=== PATIENT | female | born 1995 | race Caucasian/White ===

== ENCOUNTER 2017-04-29 10:36 | Emergency (ER) | payer MEDICAID, OTHER ==
[2017-04-29] MEDS ORDERED: Sodium Chloride 0.9% 1,000 ML IV ONE (10:53)
--- NOTE | 2017-04-29 11:12 | EDM.PDOC ---
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 Patient reports that she has had a IUD placed for the last year, this was for dysfunctional and heavy bleeding along with she does use Accutane for acne control. Since getting the IUD placed her menses has been regulated and she now gets her regular menses monthly. States she is going through a regular tampon every 2-3 hours. Denies any chest pain, shortness of breath, fever or chills. Denies dizziness, near syncope or lightheadedness. Stopped acutane last month, treatment completed. Previous menses, prior to IUD, were constant and heavy. Review of systems: As per history of present illness and below otherwise all systems reviewed and negative. Past medical history: As per history of present illness and as reviewed below otherwise noncontributory. Surgical history: As per history of present illness and as reviewed below otherwise noncontributory. Social history: No reported history of drug or alcohol abuse. Family history: As per history of present illness and as reviewed below otherwise noncontributory. Physical exam: HEENT: Atraumatic, normocephalic, pupils reactive, negative for conjunctival pallor or scleral icterus, mucous membranes moist, throat clear, neck supple, nontender, trachea midline. Lungs: Clear to auscultation, breath sounds equal bilaterally, chest nontender. Heart: S1S2, regular, negative for clicks, rubs, or JVD. Abdomen: Soft, nondistended, nontender. Negative for masses or hepatosplenomegaly. Negative for costovertebral tenderness. Pelvis: Stable nontender. Genitourinary: This was done with a capsule maker. External genitalia is normal. Able to visualize the cervical os which is closed and IUD strings are visible. There is some blood in the vaginal canal. Patient tolerated well. Rectal: Deferred. Extremities: Atraumatic, negative for cords or calf pain. Neurovascular unremarkable. Neuro: Awake, alert, oriented. Cranial nerves II through XII unremarkable. Cerebellum unremarkable. Motor and sensory unremarkable throughout. Exam nonfocal. Offered patient IV fluids and pain medication, she declined at this time. Pelvic exam was completed with a gibson, the IUD strings are visable. See physical examination. Patient has history of ovarian cysts, therefor a U/S will be completed today. Diagnostics: CBC, CMP, UA, urine Therapeutics: Patient declined IV fluids and pain medication Impression: Dysfunctional uterine bleeding Plan: 1. Both the pelvic exam and ultrasound show that your IUD is in place. All your labs were within normal limits. 2. If you continue to have her menstrual periods, please follow-up with your OB/ IMPROVEMENT MANAGER to discuss further treatment options. 3. Return to the ED as needed as discussed Definitive disposition and diagnosis as appropriate pending reevaluation and review of above. Pelvic Pain Score (Numeric/FACES): 7 - Related Data Allergies Allergy/AdvReac Type Severity Reaction Status Date / Time No Known Allergies Allergy Verified 05/12/14 17:07 Home Meds: Home Meds . [No Known Home Meds] 04/29/17 [History] Past Medical History - Past Health History Medical/Surgical History: Denies Medical/Surgical History HELPER STEEL FABRICATION History: Reports: Other (See Below) Other OB/BYN History: IUD Social & Family History - Tobacco Use Smoking Status *Q: Never Smoker Second Hand Smoke Exposure: No - Caffeine Use Caffeine Use: Reports: Coffee - Alcohol Use Days Per Week of Alcohol Use: 0 - Recreational Drug Use Recreational Drug Use: No ED ROS GENERAL - Review of Systems Review Of Systems: ROS reveals no pertinent complaints other than HPI. ED EXAM, GI/ABD - Physical Exam Exam: See Below (See dictation) Course - Vital Signs Last Recorded V/S: Last Vital Signs Temp 36.3 C 04/29/17 10:57 Pulse 84 04/29/17 11:30 Resp 18 04/29/17 10:57 BP 124/74 04/29/17 11:30 Pulse Ox 98 04/29/17 10:57 - Orders/Labs/Meds Orders: Active Orders 24 hr Category Date Time Status Pelvis Non OB Comp [US] Stat Exams 04/29/17 11:43 Taken Labs: Laboratory Tests 04/29/17 04/29/17 04/29/17 Range/Units 11:19 11:19 11:30 WBC 6.26 (4.0-11.0) K/uL RBC 4.85 (4.30-5.90) M/uL Hgb 14.2 (12.0-16.0) g/dL Hct 41.3 (36.0-46.0) % MCV 85.2 (80.0-98.0) fL MCH 29.3 (27.0-32.0) pg MCHC 34.4 (31.0-37.0) g/dL RDW Std Deviation 40.6 (28.0-62.0) fl RDW Coeff of Mariam 13 (11.0-15.0) % Plt Count 245 (150-400) K/uL MPV 9.50 (7.40-12.00) fL Neut % (Auto) 60.3 (48.0-80.0) % Lymph % (Auto) 28.8 (16.0-40.0) % [place] % (Auto) 8.3 (0.0-15.0) % Eos % (Auto) 2.4 (0.0-7.0) % Baso % (Auto) 0.2 (0.0-1.5) % Neut # (Auto) 3.8 (1.4-5.7) K/uL Lymph # (Auto) 1.8 (0.6-2.4) K/uL [place] # (Auto) 0.5 (0.0-0.8) K/uL Eos # (Auto) 0.2 (0.0-0.7) K/uL Baso # (Auto) 0.0 (0.0-0.1) K/uL Nucleated RBC % 0.0 /100WBC Nucleated RBCs # 0 K/uL Sodium 141 (136-146) mmol/L Potassium 4.4 (3.5-5.1) mmol/L Chloride 108 (98-110) mmol/L Carbon Dioxide 24 (21-31) mmol/L BUN 15 (6.0-23.0) mg/dL Creatinine 0.6 (0.6-1.5) mg/dL Est Cr Clr Drug Dosing 141.18 mL/min Estimated GFR (MDRD) > 60.0 ml/min Glucose 99 (60-110) mg/dL Calcium 9.5 (8.8-10.8) mg/dL Total Bilirubin 0.7 (0.1-1.5) mg/dL AST 20 (5-40) IU/L ALT 19 (8-54) IU/L Alkaline Phosphatase 56 (40-150) Total Protein 6.6 (6.0-8.0) g/dL Albumin 4.1 (3.5-5.0) g/dL Globulin 2.5 (2.0-3.5) g/dL Albumin/Globulin Ratio 1.6 (1.3-2.8) Urine Color Urine Appearance Urine pH (5.0-8.0) Ur Specific [place] (1.001-1.035) Urine Protein (NEGATIVE) mg/dL Urine Glucose (UA) (NEGATIVE) mg/dL Urine Ketones (NEGATIVE) mg/dL Urine Occult Blood (NEGATIVE) Urine Nitrite (NEGATIVE) Urine Bilirubin (NEGATIVE) Urine Urobilinogen (<2.0) EU/dL Ur Leukocyte Esterase (NEGATIVE) Urine RBC (0-2/HPF) Urine WBC (0-5/HPF) Ur Epithelial Cells (NONE-FEW) Urine Bacteria (NEGATIVE) Urine HCG, Qual NEGATIVE (NEGATIVE) 04/29/17 Range/Units 11:30 WBC (4.0-11.0) K/uL RBC (4.30-5.90) M/uL Hgb (12.0-16.0) g/dL Hct (36.0-46.0) % MCV (80.0-98.0) fL MCH (27.0-32.0) pg MCHC (31.0-37.0) g/dL RDW Std Deviation (28.0-62.0) fl RDW Coeff of Mariam (11.0-15.0) % Plt Count (150-400) K/uL MPV (7.40-12.00) fL Neut % (Auto) (48.0-80.0) % Lymph % (Auto) (16.0-40.0) % [place] % (Auto) (0.0-15.0) % Eos % (Auto) (0.0-7.0) % Baso % (Auto) (0.0-1.5) % Neut # (Auto) (1.4-5.7) K/uL Lymph # (Auto) (0.6-2.4) K/uL [place] # (Auto) (0.0-0.8) K/uL Eos # (Auto) (0.0-0.7) K/uL Baso # (Auto) (0.0-0.1) K/uL Nucleated RBC % /100WBC Nucleated RBCs # K/uL Sodium (136-146) mmol/L Potassium (3.5-5.1) mmol/L Chloride (98-110) mmol/L Carbon Dioxide (21-31) mmol/L BUN (6.0-23.0) mg/dL Creatinine (0.6-1.5) mg/dL Est Cr Clr Drug Dosing mL/min Estimated GFR (MDRD) ml/min Glucose (60-110) mg/dL Calcium (8.8-10.8) mg/dL Total Bilirubin (0.1-1.5) mg/dL AST (5-40) IU/L ALT (8-54) IU/L Alkaline Phosphatase (40-150) Total Protein (6.0-8.0) g/dL Albumin (3.5-5.0) g/dL Globulin (2.0-3.5) g/dL Albumin/Globulin Ratio (1.3-2.8) Urine Color YELLOW Urine Appearance CLEAR Urine pH 7.0 (5.0-8.0) Ur Specific [place] 1.010 (1.001-1.035) Urine Protein NEGATIVE (NEGATIVE) mg/dL Urine Glucose (UA) NEGATIVE (NEGATIVE) mg/dL Urine Ketones NEGATIVE (NEGATIVE) mg/dL Urine Occult Blood SMALL H (NEGATIVE) Urine Nitrite NEGATIVE (NEGATIVE) Urine Bilirubin NEGATIVE (NEGATIVE) Urine Urobilinogen 0.2 (<2.0) EU/dL Ur Leukocyte Esterase NEGATIVE (NEGATIVE) Urine RBC 2-4 (0-2/HPF) Urine WBC 0-2 (0-5/HPF) Ur Epithelial Cells FEW (NONE-FEW) Urine Bacteria FEW (NEGATIVE) Urine HCG, Qual (NEGATIVE) Meds: Medications Discontinued Medications Generic Name Dose Route Start Last Admin Trade Name Freq PRN Reason Stop Dose Admin Sodium Chloride 1,000 mls @ 999 mls/hr 04/29/17 10:53 Normal Saline IV 04/29/17 11:53 STAT ONE Departure - Departure Time of Disposition: 13:34 Disposition: Home, Self-Care 01 Clinical Impression: Dysfunctional uterine bleeding - Discharge Information Instructions: Dysfunctional Uterine Bleeding Referrals: PCP,None [Primary Care Provider] - Forms: ED Department Discharge Additional Instructions: My general discharge The following information is given to patients seen in the emergency department who are being discharged to home. This information is to outline your options for follow-up care. We provide all patients seen in our emergency department with a follow-up referral. The need for follow-up, as well as the timing and circumstances, are variable depending upon the specifics of your emergency department visit. If you don't have a primary care physician on staff, we will provide you with a referral. We always advise you to contact your personal physician following an emergency department visit to inform them of the circumstance of the visit and for follow-up with them and/or the need for any referrals to a consulting specialist. The emergency department will also refer you to a specialist when appropriate. This referral assures that you have the opportunity for follow-up care with a specialist. All of these measure are taken in an effort to provide you with optimal care, which includes your follow-up. Under all circumstances we always encourage you to contact your private physician who remains a resource for coordinating your care. When calling for follow-up care, please make the office aware that this follow-up is from your recent emergency room visit. If for any reason you are refused follow-up, please contact the [facility] Emergency Department at and asked to speak to the emergency department charge nurse. [facility] - [facility] [address] [place] [id number] 1. Both the pelvic exam and ultrasound show that your IUD is in place. All your labs were within normal limits. 2. If you continue to have her menstrual periods, please follow-up with your OB/ IMPROVEMENT MANAGER to discuss further treatment options. 3. Return to the ED as needed as discussed - My Orders Last 24 Hours: My Active Orders 04/29/17 11:43 Pelvis Non OB Comp [US] Stat - Assessment/Plan Last 24 Hours: My Active Orders 04/29/17 11:43 Pelvis Non OB Comp [US] Stat
[2017-04-29 11:55] LABS: CHLORIDE,CL 108 mmol/L (98-110); SODIUM,NA 141 mmol/L (136-146)
--- NOTE | 2017-04-30 13:34 | US ---
EXAM DATE: 04/29/17 PATIENT'S AGE: 21 Patient: JACLYN DE LA GARZA Facility: [place], [place] Site . Site : 1995 Study: US Pelvis [id number]/[id number] 12:29:48 PM Ordering Physician: Doctor Aguilar Final Report: INDICATION: Abdominal cramping. Vaginal bleeding. TECHNIQUE: Ultrasound pelvis transvaginal. Real time sonographic images with Spectral and color Doppler imaging of the ovaries were obtained. COMPARISON: None FINDINGS: Uterus: The uterus is retroflexed. It measures 6.4 x 3.6 x 4.8 cm. Normal echotexture of the myometrium. No masses. Endometrium: An echogenic shadowing IUD is identified and appears in appropriate position. This predominantly obscures the endometrium. There is endometrial fluid. Right ovary: Measures 3.2 x 1.3 x 3.5 cm. Small follicles noted. No ovarian or adnexal masses. Normal arterial and venous blood flow. Left ovary: Measures 3.3 x 1.3 x 2.3 cm. Small follicles noted. No ovarian or adnexal masses. Normal arterial and venous blood flow. Cul-de-sac: No significant free fluid. IMPRESSION: 1. IUD appears in appropriate position. 2. Small amount of endometrial fluid likely representing blood products. 3. Ovaries are normal. Dictated by Sher Fallon MD @ 04/29/2017 1:29:25 PM Dictated by: Sher Fallon MD @ 04/29/2017 13:29:41 (Electronic Signature) Report Signed by Proxy. MTDAngela
== END 2017-04-29 13:41 | disposition home or self-care (01) ==
LOC: MW.ED 10:36
DX: N93.8 Other specified abnormal uterine and vaginal bleeding (principal)
CPT/HCPCS: 36415; 76856; 76856-26; 80053; 81001; 81025; 85025; 99282; 99284-25

== ENCOUNTER 2018-10-06 19:38 | Emergency (ER) | payer BC ==
[2018-10-06] MEDS ORDERED: Sodium Chloride 0.9% 1,000 ML IV SCH (20:00)
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
[2018-10-06 20:21] LABS: CHLORIDE,CL 106 mmol/L (98-107); SODIUM,NA 143 mmol/L (136-145)
--- NOTE | 2018-10-06 20:40 | CR ---
Indication: Chest pain. Technique: A single AP portable view of the chest was obtained. Comparison: None Findings: The heart is normal in size. The lungs are clear. No infiltrate, pleural effusion, or pneumothorax is identified. Impression: No acute cardiopulmonary process. Dictated by Brooke Tapia MD @ Oct 06 2018 8:37PM Signed by Dr. Brooke Tapia @ Oct 06 2018 8:38PM
--- NOTE | 2018-10-06 21:39 | CT ---
INDICATION: 23 year-old female. Syncopal episode. COMPARISON: None. TECHNIQUE: A CT volumetric acquisition was performed of the brain without IV contrast. FINDINGS: The CT images reveal a normal appearance of the cerebral ventricles and basal cisterns. There is no evidence of intracranial hemorrhage, tissue infarction or mass effect. The mastoid air cells and middle ear cavities are clear. The calvarium appears intact. There is normal aeration of the visualized paranasal sinuses. IMPRESSION: Negative head CT. Please note that all CT scans at this facility use dose modulation, iterative reconstruction, and/or weight-based dosing when appropriate to reduce radiation dose to as low as reasonably achievable. Dictated by Johny Harrison MD @ Oct 06 2018 9:36PM Signed by Dr. Johny Harrison @ Oct 06 2018 9:38PM
== END 2018-10-06 22:25 | disposition home or self-care (01) ==
LOC: MW.ED 19:38
DX: R55 Syncope and collapse (principal); K21.9 Gastro-esophageal reflux disease without esophagitis; Z79.899 Other long term (current) drug therapy
CPT/HCPCS: 36415; 70450; 71045; 80053; 81001; 81025; 84484; 85025; 85610; 93005; 96360; 99285; J7040

== ENCOUNTER 2019-02-10 11:23 | Emergency (ER) | payer BC ==
--- NOTE | 2019-02-10 11:26 | EDM.PDOC ---
ED HPI GENERAL MEDICAL PROBLEM - General Stated Complaint: RT WRIST INJURY Time Seen by Provider: 02/10/19 11:25 Source of Information: Reports: Patient History Limitations: Reports: No Limitations - History of Present Illness INITIAL COMMENTS - FREE TEXT/NARRATIVE: HISTORY AND PHYSICAL: History of present illness: Patient is a 23-year-old female who presents to the emergency room today with complaints of right wrist pain. She states yesterday she had fallen on an outstretched hand and since has had pain. She denies any head injury or loss of consciousness. Besides the right wrist has no other concerns or complaints at this time. Review of systems: As per history of present illness and below otherwise all systems reviewed and negative. Past medical history: As per history of present illness and as reviewed below otherwise noncontributory. Surgical history: As per history of present illness and as reviewed below otherwise noncontributory. Social history: See social history for further information Family history: As per history of present illness and as reviewed below otherwise noncontributory. Physical exam: General: Well-developed and well-nourished 23-year-old female. Alert and oriented. Nontoxic appearing and in no acute distress. HEENT: Atraumatic, normocephalic, pupils equal and reactive bilaterally, negative for conjunctival pallor or scleral icterus, mucous membranes moist, trachea midline. No drooling or trismus noted. No meningeal signs. No hot potato voice noted. Lungs: Clear to auscultation, breath sounds equal bilaterally, chest nontender. Heart: S1S2, regular rate and rhythm without overt murmur Abdomen: Soft, nondistended, nontender. Skin: Intact, warm, dry. No lesions or rashes noted. Extremities: Generalized pain to the right wrist with palpation or range of motion otherwise moves all extremities per self without difficulty or deficits. No snuff box tenderness to palpation. Strong radial pulse. Neurovascular unremarkable. Denies any numbness, tingling or weakness of the affected extremity. Neuro: Awake, alert, oriented. Cranial nerves II through XII unremarkable. Cerebellum unremarkable. Motor and sensory unremarkable throughout. Exam nonfocal. Notes: X-ray shows no acute findings. Cockup wrist splint was applied with education. Occurs to follow-up with orthopedic provider. Supportive care measures were reviewed and discussed. Voices understanding and is agreeable to plan of care. Denies any further questions or concerns at this time. Diagnostics: X-ray Therapeutics: Toradol IM (declined), cockup wrist splint Prescription: None Impression: Right wrist injury Plan: 1. Rest, ice, elevate the affected extremity. Please wear the splint as directed. 2. Tylenol and/or Ibuprofen as needed for pain management. 3. Follow up with the Orthopedic provider as we discussed. Return to the ED as needed and as discussed. Definitive disposition and diagnosis as appropriate pending reevaluation and review of above. Duration: Day(s): Location: Reports: Upper Extremity, Right righ wrist Pain Score (Numeric/FACES): 8 - Related Data Allergies Allergy/AdvReac Type Severity Reaction Status Date / Time No Known Allergies Allergy Verified 02/10/19 11:29 Home Meds: Home Meds . [No Known Home Meds] 02/10/19 [History] Past Medical History - Past Health History Medical/Surgical History: Denies Medical/Surgical History Gastrointestinal History: Reports: GERD EMT B History: Reports: Other (See Below) Other EMT B History: IUD - Infectious Disease History Infectious Disease History: Reports: Chicken Pox Social & Family History - Family History Family Medical History: Noncontributory - Caffeine Use Caffeine Use: Reports: Coffee Review of Systems - Review of Systems Review Of Systems: ROS reveals no pertinent complaints other than HPI. ED EXAM, GENERAL - Physical Exam Exam: See Below (See dictation) Course - Vital Signs Last Recorded V/S: Last Vital Signs Temp 97.8 F 02/10/19 11:30 Pulse 99 02/10/19 11:30 Resp 18 02/10/19 11:30 BP 137/78 02/10/19 11:30 Pulse Ox 98 02/10/19 11:30 - Orders/Labs/Meds Orders: Active Orders 24 hr Category Date Time Status Wrist Comp Min 3V Rt [CR] Stat Exams 02/10/19 11:35 Taken DME for Discharge [COMM] Stat Oth 02/10/19 11:45 Ordered Meds: Medications Discontinued Medications Generic Name Dose Route Start Last Admin Trade Name Freq PRN Reason Stop Dose Admin Ketorolac Tromethamine 60 mg 02/10/19 11:37 Toradol IM 02/10/19 11:38 ONETIME ONE Departure - Departure Time of Disposition: 11:55 Disposition: Home, Self-Care 01 Clinical Impression: Right wrist injury Qualifiers: Encounter type: initial encounter Qualified Code(s): S69.91XA - Unspecified injury of right wrist, hand and finger(s), initial encounter - Discharge Information Instructions: Wrist Splint, Adult, [id number] Referrals: PCP,Unknown [Primary Care Provider] - Additional Instructions: The following information is given to patients seen in the emergency department who are being discharged to home. This information is to outline your options for follow-up care. We provide all patients seen in our emergency department with a follow-up referral. The need for follow-up, as well as the timing and circumstances, are variable depending upon the specifics of your emergency department visit. If you don't have a primary care physician on staff, we will provide you with a referral. We always advise you to contact your personal physician following an emergency department visit to inform them of the circumstance of the visit and for follow-up with them and/or the need for any referrals to a consulting specialist. The emergency department will also refer you to a specialist when appropriate. This referral assures that you have the opportunity for follow-up care with a specialist. All of these measure are taken in an effort to provide you with optimal care, which includes your follow-up. Under all circumstances we always encourage you to contact your private physician who remains a resource for coordinating your care. When calling for follow-up care, please make the office aware that this follow-up is from your recent emergency room visit. If for any reason you are refused follow-up, please contact the [facility] at and asked to speak to the emergency department charge nurse. [facility] [address] [place] [id number] [facility] [address] [place] [address], [address] [place] [address] 1. Rest, ice, elevate the affected extremity. Please wear the splint as directed. 2. Tylenol and/or Ibuprofen as needed for pain management. 3. Follow up with the Orthopedic provider as we discussed. Return to the ED as needed and as discussed. - My Orders Last 24 Hours: My Active Orders 02/10/19 11:35 Wrist Comp Min 3V Rt [CR] Stat 02/10/19 11:45 DME for Discharge [COMM] Stat - Assessment/Plan Last 24 Hours: My Active Orders 02/10/19 11:35 Wrist Comp Min 3V Rt [CR] Stat 02/10/19 11:45 DME for Discharge [COMM] Stat
[2019-02-10] MEDS ORDERED: Ketorolac 60 MG/2 ML SDV IM ONE (11:37)
--- NOTE | 2019-02-10 11:59 | CR ---
EXAMINATION: Right wrist HISTORY: Injury COMPARISON: 04/29/2013 TECHNIQUE: 3 views FINDINGS/IMPRESSION: There is no acute osseous abnormality, dislocation, or fracture. Bone mineralization and joint spaces are preserved. Radiocarpal alignment is normal.
== END 2019-02-10 12:01 | disposition home or self-care (01) ==
LOC: MW.ED 11:23
DX: S69.91XA Unspecified injury of right wrist, hand and finger(s), initial encounter (principal); W20.8XXA Other cause of strike by thrown, projected or falling object, initial encounter
CPT/HCPCS: 73110-26-RT; 73110-RT; 99283; 99283-25

== ENCOUNTER 2019-07-25 22:12 | Emergency (ER) | payer BC ==
--- NOTE | 2019-07-25 23:27 | EDM.PDOC ---
ED HPI GENERAL MEDICAL PROBLEM - General Chief Complaint: ENT Problem Stated Complaint: COLD SYMPTOMS Time Seen by Provider: 07/25/19 23:22 Source of Information: Reports: Patient History Limitations: Reports: No Limitations - History of Present Illness INITIAL COMMENTS - FREE TEXT/NARRATIVE: 23-year-old female presents the emergency room chief complaint of fever chills and cough all within the past 24 hours. Onset: Today Duration: Day(s):, Getting Worse Severity: Mild Improves with: Reports: None Worsens with: Reports: None Associated Symptoms: Reports: No Other Symptoms, Cough bodyache Pain Score (Numeric/FACES): 8 - Related Data Allergies Allergy/AdvReac Type Severity Reaction Status Date / Time No Known Allergies Allergy Verified 07/25/19 22:32 Home Meds: Home Meds . [No Known Home Meds] 02/10/19 [History] Past Medical History - Past Health History Medical/Surgical History: Denies Medical/Surgical History HEENT History: Reports: None Cardiovascular History: Reports: None Respiratory History: Reports: None Gastrointestinal History: Reports: GERD, Other (See Below) Other Gastrointestinal History: IBS Genitourinary History: Reports: None HALAL BUTCHER History: Reports: Other (See Below) Other HALAL BUTCHER History: IUD Musculoskeletal History: Reports: None Neurological History: Reports: None Psychiatric History: Reports: None Endocrine/Metabolic History: Reports: None Insulin Pump Model and Belt Dresser: None Hematologic History: Reports: None Immunologic History: Reports: None Oncologic (Cancer) History: Reports: None Dermatologic History: Reports: None - Infectious Disease History Infectious Disease History: Reports: None - Past Surgical History Head Surgeries/Procedures: Reports: None Social & Family History - Family History Family Medical History: Noncontributory - Tobacco Use Smoking Status *Q: Never Smoker - Caffeine Use Caffeine Use: Reports: None - Recreational Drug Use Recreational Drug Use: No ED ROS GENERAL - Review of Systems Review Of Systems: Comprehensive ROS is negative, except as noted in HPI. Constitutional: Reports: Fever, Chills, Malaise HEENT: Reports: No Symptoms Respiratory: Reports: Cough Cardiovascular: Reports: No Symptoms Endocrine: Reports: No Symptoms GI/Abdominal: Reports: No Symptoms : Reports: No Symptoms Musculoskeletal: Reports: No Symptoms Skin: Reports: No Symptoms Neurological: Reports: No Symptoms Psychiatric: Reports: No Symptoms Hematologic/Lymphatic: Reports: No Symptoms Immunologic: Reports: No Symptoms ED EXAM, DIZZINESS - Physical Exam Exam: See Below Exam Limited By: No Limitations General Appearance: Alert, WD/WN, No Apparent Distress Eye Exam: Bilateral Eye: Normal Fundi, Normal Inspection Course - Vital Signs Text/Narrative:: 23-year-old female presents to the emergency room positive for influenza B. Patient will be started on Tamiflu. Last Recorded V/S: Last Vital Signs Temp 98 F 07/25/19 22:30 Pulse 92 07/25/19 22:30 Resp 18 07/25/19 22:30 BP 120/72 07/25/19 22:30 Pulse Ox 98 07/25/19 22:30 - Orders/Labs/Meds Orders: Active Orders 24 hr Category Date Time Status CULTURE STREP A CONFIRMATION [RM] Stat Lab 07/25/19 22:25 Results STREP SCRN A RAPID W CULT CONF [RM] Stat Lab 07/25/19 22:25 Results Departure - Departure Time of Disposition: 23:29 Disposition: Home, Self-Care 01 Clinical Impression: Influenza B - Discharge Information Instructions: Influenza, Adult, [id number] Referrals: Alethea Khan DO [Primary Care Provider] - Sepsis Event Note - Evaluation Sepsis Screening Result: No Definite Risk - Focused Exam Vital Signs: Vital Signs Temp Pulse Resp BP Pulse Ox 07/25/19 22:30 98 F 92 18 120/72 98 Date Exam was Performed: 07/25/19 Time Exam was Performed: 23:22 - My Orders Last 24 Hours: My Active Orders 07/25/19 22:25 CULTURE STREP A CONFIRMATION [RM] Stat STREP SCRN A RAPID W CULT CONF [RM] Stat - Assessment/Plan Last 24 Hours: My Active Orders 07/25/19 22:25 CULTURE STREP A CONFIRMATION [RM] Stat STREP SCRN A RAPID W CULT CONF [RM] Stat
[2019-07-25] MEDS ORDERED: Oseltamivir 75 MG Cap PO ONE (23:30)
== END 2019-07-25 23:41 | disposition home or self-care (01) ==
LOC: MW.ED 22:12
DX: J10.1 Influenza due to other identified influenza virus with other respiratory manifestations (principal)
CPT/HCPCS: 87081; 87804; 87880; 99283; A9270

== ENCOUNTER 2019-07-26 22:57 | Emergency (ER) | payer BC ==
[2019-07-26] MEDS ORDERED: Albuterol/Ipratropium 3.0-0.5 MG/3 ML Neb Soln NEB ONE (23:16)
--- NOTE | 2019-07-26 23:28 | EDM.PDOC ---
ED HPI GENERAL MEDICAL PROBLEM - General Chief Complaint: Respiratory Problem Stated Complaint: FLU CHEST PAIN Time Seen by Provider: 07/26/19 23:15 Source of Information: Reports: Patient History Limitations: Reports: No Limitations - History of Present Illness Onset: Gradual Duration: Day(s): Location: Reports: Chest Improves with: Reports: None Worsens with: Reports: None Associated Symptoms: Reports: No Other Symptoms Body Pain Score (Numeric/FACES): 10 - Related Data Allergies Allergy/AdvReac Type Severity Reaction Status Date / Time No Known Allergies Allergy Verified 07/26/19 23:30 Home Meds: Home Meds Oseltamivir [Tamiflu] 75 mg PO BID 5 Days #10 cap 07/25/19 [Rx] Past Medical History - Past Health History Medical/Surgical History: Denies Medical/Surgical History HEENT History: Reports: None Cardiovascular History: Reports: None Respiratory History: Reports: None Gastrointestinal History: Reports: GERD, Other (See Below) Other Gastrointestinal History: IBS Genitourinary History: Reports: None MAINTENANCE ENGINEER History: Reports: Other (See Below) Other MAINTENANCE ENGINEER History: IUD Musculoskeletal History: Reports: None Neurological History: Reports: None Psychiatric History: Reports: None Endocrine/Metabolic History: Reports: None Insulin Pump Model and Mobile Application Engineer: None Hematologic History: Reports: None Immunologic History: Reports: None Oncologic (Cancer) History: Reports: None Dermatologic History: Reports: None - Infectious Disease History Infectious Disease History: Reports: None - Past Surgical History Head Surgeries/Procedures: Reports: None Social & Family History - Family History Family Medical History: Noncontributory - Caffeine Use Caffeine Use: Reports: None ED ROS GENERAL - Review of Systems Review Of Systems: Comprehensive ROS is negative, except as noted in HPI. Constitutional: Reports: No Symptoms HEENT: Reports: No Symptoms Respiratory: Reports: Shortness of Breath Cardiovascular: Reports: No Symptoms Endocrine: Reports: No Symptoms GI/Abdominal: Reports: No Symptoms : Reports: No Symptoms Musculoskeletal: Reports: No Symptoms Skin: Reports: No Symptoms Neurological: Reports: No Symptoms Psychiatric: Reports: No Symptoms Hematologic/Lymphatic: Reports: No Symptoms Immunologic: Reports: No Symptoms ED EXAM, GENERAL - Physical Exam Exam: See Below Exam Limited By: No Limitations General Appearance: Alert, WD/WN, No Apparent Distress Eye Exam: Bilateral Eye: Normal Fundi, Normal Inspection Ears: Normal External Exam, Normal Canal, Hearing Grossly Normal, Normal TMs Throat/Mouth: Normal Inspection, Normal Lips Head: Atraumatic, Normocephalic Neck: Normal Inspection, Supple, Non-Tender Respiratory/Chest: No Respiratory Distress, Lungs Clear, No Accessory Muscle Use Cardiovascular: Normal Peripheral Pulses, Regular Rate, Rhythm (Female) Exam: Deferred Neurological: Alert, Oriented, CN II-XII Intact, Normal Cognition, Normal Reflexes, No Motor/Sensory Deficits Psychiatric: Normal Affect, Normal Mood Skin Exam: Warm, Normal Color Course - Vital Signs Last Recorded V/S: Last Vital Signs Temp 98.6 F 07/26/19 23:31 Pulse 103 H 07/26/19 23:31 Resp 20 07/26/19 23:31 BP 116/74 07/26/19 23:31 Pulse Ox 97 07/26/19 23:31 - Orders/Labs/Meds Orders: Active Orders 24 hr Category Date Time Status RT Aerosol Therapy [RC] ASDIRECTED Care 07/26/19 23:16 Active Labs: Laboratory Tests 07/26/19 Range/Units 23:45 Urine HCG, Qual NEGATIVE (NEGATIVE) Meds: Medications Discontinued Medications Generic Name Dose Route Start Last Admin Trade Name Freq PRN Reason Stop Dose Admin Albuterol/Ipratropium 3 ml 07/26/19 23:16 07/26/19 23:23 Duoneb 3.0-0.5 Mg/3 Ml NEB 07/26/19 23:17 3 ml ONETIME ONE Administration Departure - Departure Time of Disposition: 01:35 Disposition: Home, Self-Care 01 Condition: Good Clinical Impression: Influenza - Discharge Information Instructions: Shortness of Breath, Adult, [id number] Referrals: Alethea Khan DO [Primary Care Provider] - Forms: ED Department Discharge Sepsis Event Note - Focused Exam Vital Signs: Vital Signs Temp Pulse Resp BP Pulse Ox 07/26/19 23:31 98.6 F 103 H 20 116/74 97 Date Exam was Performed: 07/27/19 Time Exam was Performed: 01:35 - My Orders Last 24 Hours: My Active Orders 07/26/19 23:16 RT Aerosol Therapy [RC] ASDIRECTED - Assessment/Plan Last 24 Hours: My Active Orders 07/26/19 23:16 RT Aerosol Therapy [RC] ASDIRECTED
--- NOTE | 2019-07-27 01:07 | CR ---
INDICATION: Chest pain/shortness of breath. CHEST, ONE VIEW An AP radiograph of the chest was performed. Comparison: 10/06/2018. The lungs appear clear and no pleural effusions are identified. The cardiomediastinal silhouette and pulmonary vasculature appear normal, as do the visualized bones. IMPRESSION: No acute intrathoracic abnormality identified. ANITHA ALCALA MD [facility] Dictated by: Michele Alcala MD @ 07/27/2019 01:05:08 (Electronically Signed)
== END 2019-07-27 01:55 | disposition home or self-care (01) ==
LOC: MW.ED 22:57
DX: J11.1 Influenza due to unidentified influenza virus with other respiratory manifestations (principal)
CPT/HCPCS: 71045; 71045-26; 81025; 99283; 99285-25; J7620-GY

== ENCOUNTER 2019-07-27 12:33 | Emergency (ER) | payer BC ==
[2019-07-27] MEDS ORDERED: Sodium Chloride 0.9% 1,000 ML IV ONE ×2 (13:44→15:31)
[2019-07-27] MEDS ORDERED: Ondansetron 4 MG/2 ML SDV IVPUSH ONE (13:44)
--- NOTE | 2019-07-27 13:54 | EDM.PDOC ---
ED HPI GENERAL MEDICAL PROBLEM - General Chief Complaint: Gastrointestinal Problem Stated Complaint: FLU SYMPTOMS Time Seen by Provider: 07/27/19 13:34 Source of Information: Reports: Patient History Limitations: Reports: No Limitations - History of Present Illness INITIAL COMMENTS - FREE TEXT/NARRATIVE: This 23 year old female presents to the ED after being seen in ED here on Sunday with a diagnosis of Influenza B and returned last night due to increasing nausea and vomiting and not being able to keep fluids down. She has dry heaves at the present time. She states that she did have a chest x-ray on Sunday. She states that she feels that she is getting somewhat dehydrated. Onset: Gradual (as noted above) Duration: Getting Worse Quality: Reports: Ache (generalized body aches) Severity: Moderate Associated Symptoms: Reports: Cough, Nausea/Vomiting (Can't keep any thing down. ) chest Pain Score (Numeric/FACES): 9 throat Pain Score (Numeric/FACES): 9 abd Pain Score (Numeric/FACES): 9 - Related Data Allergies Allergy/AdvReac Type Severity Reaction Status Date / Time No Known Allergies Allergy Verified 07/26/19 23:30 Home Meds: Home Meds Oseltamivir [Tamiflu] 75 mg PO BID 5 Days #10 cap 07/25/19 [Rx] Albuterol Sulfate [Proair Hfa] 8.5 gm IH 6XDAY 10 Days hfa.aer.ad 07/27/19 [Rx] Ondansetron [Zofran ODT] 4 mg PO Q6H PRN 6 Days #24 tab.dis 07/27/19 [Rx] Past Medical History - Past Health History Medical/Surgical History: Denies Medical/Surgical History HEENT History: Reports: None Cardiovascular History: Reports: None Respiratory History: Reports: None Gastrointestinal History: Reports: GERD, Other (See Below) Other Gastrointestinal History: IBS Genitourinary History: Reports: None 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 (See Below) Other PATTERN CHAIN MAKER SUPERVISOR History: IUD Musculoskeletal History: Reports: None Neurological History: Reports: None Psychiatric History: Reports: None Endocrine/Metabolic History: Reports: None Insulin Pump Model and Insole Channeler: None Hematologic History: Reports: None Immunologic History: Reports: None Oncologic (Cancer) History: Reports: None Dermatologic History: Reports: None - Infectious Disease History Infectious Disease History: Reports: Shingles - Past Surgical History Head Surgeries/Procedures: Reports: None Social & Family History - Family History Family Medical History: Noncontributory - Tobacco Use Smoking Status *Q: Current Every Day Smoker Years of Tobacco use: 1 Packs/Tins Daily: 1 - Caffeine Use Caffeine Use: Reports: None - Recreational Drug Use Recreational Drug Use: Yes Recreational Drug Type: Reports: Marijuana/Hashish Recreational Drug Use Frequency: Socially ED ROS GENERAL - Review of Systems Review Of Systems: See Below Constitutional: Reports: Malaise, Weakness, Fatigue HEENT: Reports: No Symptoms Respiratory: Reports: Shortness of Breath (mild SOB), Cough Cardiovascular: Reports: No Symptoms. Denies: Lightheadedness, Palpitations, Syncope Endocrine: Reports: No Symptoms GI/Abdominal: Reports: No Symptoms : Reports: No Symptoms Musculoskeletal: Reports: No Symptoms Skin: Reports: No Symptoms Neurological: Reports: Weakness (generalized weakness.) ED EXAM, GI/ABD - Physical Exam Exam: See Below Exam Limited By: No Limitations General Appearance: Alert, WD/WN, No Apparent Distress, Lethargic Eyes: Bilateral: Normal Appearance, EOMI Ears: Normal External Exam, Normal Canal, Hearing Grossly Normal, Normal TMs Nose: Normal Inspection, Normal Mucosa, No Blood Throat/Mouth: Normal Inspection, Normal Lips, Normal Teeth, Normal Gums, Normal Oropharynx, Normal Voice, No Airway Compromise Head: Atraumatic, Normocephalic Neck: Normal Inspection, Supple, Non-Tender, Full Range of Motion. No: Lymphadenopathy (L), Lymphadenopathy (R) Respiratory/Chest: No Respiratory Distress, Lungs Clear, Normal Breath Sounds, No Accessory Muscle Use, Chest Non-Tender Cardiovascular: Normal Peripheral Pulses, Regular Rate, Rhythm, No Edema, No Gallop, No JVD, No Murmur, No Rub GI/Abdominal Exam: Normal Bowel Sounds, Soft, Non-Tender, No Organomegaly, No Distention, No Abnormal Bruit, No Mass, Pelvis Stable (Female) Exam: Deferred Rectal (Female) Exam: Deferred Back Exam: Normal Inspection, Full Range of Motion, NT Extremities: Normal Inspection, Normal Range of Motion, Non-Tender, Normal Capillary Refill, No Pedal Edema Neurological: Alert, Oriented, CN II-XII Intact, Normal Cognition, Normal Gait, Normal Reflexes, No Motor/Sensory Deficits Skin Exam: Warm, Dry, Intact, Normal Color, No Rash, Other (mild to moderate tenting of skin consistent with dehydration.) Course - Vital Signs Text/Narrative:: The patient was re-evaluated at 4:30PM. She looks good and is feeling 100% better after 2 liters of NS and Zofran 4mg IV. She will be discharged with appropriate instructions. She agrees with the discharge plan. Last Recorded V/S: Last Vital Signs Temp 98.3 F 07/27/19 12:48 Pulse 110 H 07/27/19 16:10 Resp 18 07/27/19 16:10 BP 118/80 07/27/19 16:10 Pulse Ox 97 07/27/19 16:10 - Orders/Labs/Meds Labs: Laboratory Tests 07/27/19 07/27/19 07/27/19 Range/Units 14:00 14:00 15:15 WBC 9.22 (4.0-11.0) K/uL RBC 4.74 (4.30-5.90) M/uL Hgb 14.0 (12.0-16.0) g/dL Hct 37.9 (36.0-46.0) % MCV 80.0 (80.0-98.0) fL MCH 29.5 (27.0-32.0) pg MCHC 36.9 (31.0-37.0) g/dL RDW Std Deviation 34.7 (28.0-62.0) fl RDW Coeff of Mariam 12 (11.0-15.0) % Plt Count 154 (150-400) K/uL MPV 10.00 (7.40-12.00) fL Neut % (Auto) 71.6 (48.0-80.0) % Lymph % (Auto) 13.0 L (16.0-40.0) % [place] % (Auto) 15.3 H (0.0-15.0) % Eos % (Auto) 0.0 (0.0-7.0) % Baso % (Auto) 0.1 (0.0-1.5) % Neut # (Auto) 6.6 H (1.4-5.7) K/uL Lymph # (Auto) 1.2 (0.6-2.4) K/uL [place] # (Auto) 1.4 H (0.0-0.8) K/uL Eos # (Auto) 0.0 (0.0-0.7) K/uL Baso # (Auto) 0.0 (0.0-0.1) K/uL Sodium 141 (136-145) mmol/L Potassium 3.0 L (3.5-5.1) mmol/L Chloride 103 (98-107) mmol/L Carbon Dioxide 22.0 (21.0-32.0) mmol/L BUN 9 (7.0-18.0) mg/dL Creatinine 0.6 (0.6-1.0) mg/dL Est Cr Clr Drug Dosing 133.46 mL/min Estimated GFR (MDRD) > 60.0 ml/min Glucose 101 (74-106) mg/dL Calcium 8.8 (8.5-10.1) mg/dL Total Bilirubin 0.5 (0.2-1.0) mg/dL AST 18 (15-37) IU/L ALT 25 (14-63) IU/L Alkaline Phosphatase 47 (46-116) U/L Total Protein 6.7 (6.4-8.2) g/dL Albumin 4.0 (3.4-5.0) g/dL Globulin 2.7 (2.6-4.0) g/dL Albumin/Globulin Ratio 1.5 (0.9-1.6) Urine Color YELLOW Urine Appearance CLEAR Urine pH 6.0 (5.0-8.0) Ur Specific [place] >= 1.030 (1.001-1.035) Urine Protein NEGATIVE (NEGATIVE) mg/dL Urine Glucose (UA) NEGATIVE (NEGATIVE) mg/dL Urine Ketones 40 H (NEGATIVE) mg/dL Urine Occult Blood NEGATIVE (NEGATIVE) Urine Nitrite NEGATIVE (NEGATIVE) Urine Bilirubin NEGATIVE (NEGATIVE) Urine Urobilinogen 0.2 (<2.0) EU/dL Ur Leukocyte Esterase NEGATIVE (NEGATIVE) Meds: Medications Discontinued Medications Generic Name Dose Route Start Last Admin Trade Name Freq PRN Reason Stop Dose Admin Sodium Chloride 1,000 mls @ 1,000 mls/hr 07/27/19 13:44 07/27/19 14:02 Normal Saline IV 07/27/19 14:43 1,000 mls/hr .Bolus ONE Administration Sodium Chloride 1,000 mls @ 999 mls/hr 07/27/19 15:31 07/27/19 15:32 Normal Saline IV 07/27/19 16:31 999 mls/hr .Bolus ONE Administration Ondansetron HCl 4 mg 07/27/19 13:44 07/27/19 14:02 Zofran IVPUSH 07/27/19 13:45 4 mg ONETIME ONE Administration Departure - Departure Time of Disposition: 16:38 Disposition: Home, Self-Care 01 Condition: Good Clinical Impression: Influenza B - Discharge Information *PRESCRIPTION DRUG MONITORING PROGRAM REVIEWED*: Yes *COPY OF PRESCRIPTION DRUG MONITORING REPORT IN PATIENT RAYSA: Yes Instructions: Influenza, Adult, [id number], Dehydration, Adult, [id number] Referrals: Alethea Khan DO [Primary Care Provider] - Forms: ED Department Discharge Additional Instructions: Take all medications as directed. Follow up with your PCP in the next three to four days. Return to the ED if your condition gets worse or should you have any other concerns. The following information is given to patients seen in the emergency department who are being discharged to home. This information is to outline your options for follow-up care. We provide all patients seen in our emergency department with a follow-up referral. The need for follow-up, as well as the timing and circumstances, are variable depending upon the specifics of your emergency department visit. If you don't have a primary care physician on staff, we will provide you with a referral. We always advise you to contact your personal physician following an emergency department visit to inform them of the circumstance of the visit and for follow-up with them and/or the need for any referrals to a consulting specialist. The emergency department will also refer you to a specialist when appropriate. This referral assures that you have the opportunity for follow-up care with a specialist. All of these measure are taken in an effort to provide you with optimal care, which includes your follow-up. Under all circumstances we always encourage you to contact your private physician who remains a resource for coordinating your care. When calling for follow-up care, please make the office aware that this follow-up is from your recent emergency room visit. If for any reason you are refused follow-up, please contact the [facility] Emergency Department at and asked to speak to the emergency department charge nurse. Sepsis Event Note - Evaluation Sepsis Screening Result: No Definite Risk - Focused Exam Vital Signs: Vital Signs Temp Pulse Resp BP Pulse Ox 07/27/19 16:10 110 H 18 118/80 97 07/27/19 15:32 98 16 123/79 94 L 07/27/19 14:03 100 16 117/73 94 L 07/27/19 12:48 98.3 F 109 H 20 120/77 93 L Date Exam was Performed: 07/27/19 Time Exam was Performed: 16:36
[2019-07-27 14:41] LABS: BLOOD UREA NITROGEN,BUN 9 mg/dL (7.0-18.0); CHLORIDE,CL 103 mmol/L (98-107); GLUCOSE RANDOM 101 mg/dL (74-106); SODIUM,NA 141 mmol/L (136-145)
== END 2019-07-27 16:55 | disposition home or self-care (01) ==
LOC: MW.ED 12:33
DX: J10.1 Influenza due to other identified influenza virus with other respiratory manifestations (principal); R11.2 Nausea with vomiting, unspecified; F17.210 Nicotine dependence, cigarettes, uncomplicated
CPT/HCPCS: 36415; 80053; 81003; 85025; 96361; 96374; 99284; J2405; J7030; 99283

== ENCOUNTER 2020-03-18 05:49 | Emergency (ER) | payer BC ==
[2020-03-18] MEDS ORDERED: Sodium Chloride 0.9% 2.5 ML Syringe FLUSH PRN (06:04)
[2020-03-18] MEDS ORDERED: fentaNYL 100 MCG/2 ML SDV ONE (06:04)
[2020-03-18] MEDS ORDERED: fentaNYL 50 MCG/ML SDV IVPUSH ONE (06:04)
[2020-03-18] MEDS ORDERED: Sodium Chloride 0.9% 10 ML Syringe FLUSH PRN (06:04)
[2020-03-18] MEDS ORDERED: Ketorolac 30 MG/ML SDV IVPUSH ONE (06:21)
[2020-03-18] MEDS ORDERED: Acetaminophen 500 MG Tab PO ONE (06:21)
[2020-03-18] MEDS ORDERED: Ondansetron 4 MG/2 ML SDV IVPUSH ONE (06:22)
[2020-03-18 06:23] LABS: BLOOD UREA NITROGEN,BUN 9 mg/dL (7.0-18.0); CHLORIDE,CL 106 mmol/L (98-107); GLUCOSE RANDOM 131 mg/dL (74-106); LIPASE 72 U/L (73-393); POTASSIUM,K 2.9 mmol/L (3.5-5.1); SODIUM,NA 142 mmol/L (136-145)
--- NOTE | 2020-03-18 06:24 | EDM.PDOC ---
<Perlita Severino - Last Filed: 03/18/20 11:28> ED HPI GENERAL MEDICAL PROBLEM - General Chief Complaint: Abdominal Pain Stated Complaint: KIDNEY PAIN Time Seen by Provider: 03/18/20 05:50 - Related Data Allergies Allergy/AdvReac Type Severity Reaction Status Date / Time No Known Allergies Allergy Verified 03/18/20 06:00 Home Meds: Home Meds Ibuprofen 600 mg PO Q8H #30 tablet 03/18/20 [Rx] Tamsulosin [Tamsulosin 24 Hr] 0.4 mg PO DAILY #15 cap.er 03/18/20 [Rx] Course - Vital Signs Text/Narrative:: Patient received in signout at [address] and urinalysis results. Patient with history of kidney stones presenting with right flank pain here today. CT scan shows 3 mm obstructing stone at the right UVJ. UA shows blood without infection. Patient felt much better after pain control. On reassessment she reports she actually feels like the stone may have passed into the bladder. Hypokalemic, potassium repleted here as well as magnesium. Patient feeling well. Feels well enough to go home. Will discharge with urology follow-up. - Re-Assessments/Exams Free Text/Narrative Re-Assessment/Exam: 03/18/20 08:53 Patient is feeling much better. She reports her pain is significantly improved and she actually feels that she may have passed the stone from the ureter into the bladder. Discussed CT and lab results and recommendation for outpatient urology follow-up and initiation of Flomax and high-dose ibuprofen. She agrees with that plan. Stable for discharge. Departure - Departure Time of Disposition: 08:59 Disposition: Home, Self-Care 01 Clinical Impression: Renal colic on right side, Hypokalemia - Discharge Information Prescriptions: Tamsulosin [Tamsulosin 24 Hr] 0.4 mg PO DAILY #15 cap.er Ibuprofen 600 mg PO Q8H #30 tablet Instructions: Renal Colic, [id number], Hypokalemia, Kidney Stones, [id number], Dietary Guidelines to Help Prevent Kidney Stones Referrals: Marcus Ravi MD [Physician] - 2 Days Arie Marques MD [Primary Care Provider] - 2 Days (Please recheck potassium) Forms: ED Department Discharge Additional Instructions: You have a kidney stone, located in the ureter just before the entrance to the bladder. You may have already passed this in the interim. Please take the ibuprofen 600 mg every 8 hours for the first 2 to 3 days and then as needed. Please take the Flomax once daily. Please call the urologist listed above for follow-up and recheck. Return to the ER if you develop fever, severe pain, unable to keep down fluids or any other worsening symptoms. Potassium was low on the labs here. Please take [id number] potassium supplementation or a daily banana until you can have it rechecked by your primary care physician. The following information is given to patients seen in the emergency department who are being discharged to home. This information is to outline your options for follow-up care. We provide all patients seen in our emergency department with a follow-up referral. The need for follow-up, as well as the timing and circumstances, are variable depending upon the specifics of your emergency department visit. If you don't have a primary care physician on staff, we will provide you with a referral. We always advise you to contact your personal physician following an emergency department visit to inform them of the circumstance of the visit and for follow-up with them and/or the need for any referrals to a consulting specialist. The emergency department will also refer you to a specialist when appropriate. This referral assures that you have the opportunity for follow-up care with a specialist. All of these measure are taken in an effort to provide you with optimal care, which includes your follow-up. Under all circumstances we always encourage you to contact your private physician who remains a resource for coordinating your care. When calling for follow-up care, please make the office aware that this follow-up is from your recent emergency room visit. If for any reason you are refused follow-up, please contact the [facility] Emergency Department at and asked to speak to the emergency department charge nurse. <Man Sanchez - Last Filed: 03/18/20 19:04> ED HPI GENERAL MEDICAL PROBLEM - General Source of Information: Reports: Patient, Old Records History Limitations: Reports: No Limitations - History of Present Illness INITIAL COMMENTS - FREE TEXT/NARRATIVE: 24-year-old female with past medical history of ovarian cyst, dysfunctional uterine bleeding, dysmenorrhea presenting with flank pain. Patient reports a sudden onset of severe right flank pain around 5:30 AM this morning. Nothing makes it better or worse. Pain is constant, rated as 10 out of 10, described as "sharp". No self treatment prior to arrival. Reports nausea but no emesis. Denies trauma to the back or flank, fever, chills, vomiting, hematemesis, diarrhea, rectal bleeding, dysuria, urinary frequency, hematuria, vaginal bleeding or discharge. ROS: A 10-point review of systems was negative, except as noted in the HPI (or in the ROS section of this note). Past medical history: Reviewed, no additional pertinent history. Surgical history: Reviewed in system, no additional pertinent history. Social history: Reviewed in system, no additional pertinent history. Family history: Reviewed in system, no additional pertinent history. PHYSICAL EXAM Vital signs reviewed. Nursing notes reviewed. Constitutional: Awake, alert, appears uncomfortable. Head: Normocephalic, atraumatic. Eyes: EOMI, conjunctiva normal, no discharge, no scleral icterus. Ears, Nose, Throat: External ears and nose normal, moist oral mucosa. Cardiovascular: 2+ radial pulse, capillary refill less than 2 seconds. Pulmonary: normal work of breathing, no accessory muscle use. Abdomen/GI: Soft, nontender, nondistended, no guarding or rigidity, no masses. Musculoskeletal: No deformities. Integumentary: Appropriate color for ethnicity, warm, dry, no pallor or jaundice, no rash. Neurologic: Alert, answering questions appropriately, normal speech, no facial droop, moving all extremities well. Psychiatric: Appropriate mood and affect, normal thought process. 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 Musculoskeletal History: Reports: None Neurological History: Reports: None Psychiatric History: Reports: None Endocrine/Metabolic History: Reports: None Insulin Pump Model and Sample Grinder: None Hematologic History: Reports: None Immunologic History: Reports: None Oncologic (Cancer) History: Reports: None Dermatologic History: Reports: None - Infectious Disease History Infectious Disease History: Reports: Shingles - Past Surgical History Head Surgeries/Procedures: Reports: None Social & Family History - Family History Family Medical History: Noncontributory - Tobacco Use Smoking Status *Q: Never Smoker - Caffeine Use Caffeine Use: Reports: None - Recreational Drug Use Recreational Drug Use: Yes Recreational Drug Type: Reports: Marijuana/Hashish ED ROS GENERAL - Review of Systems Review Of Systems: See Below ED EXAM, GI/ABD - Physical Exam Exam: See Below Course - Vital Signs Text/Narrative:: Patient hemodynamically stable, afebrile, well-appearing, looks nontoxic. Differential diagnosis includes but is not limited to: Kidney stone, UTI, pyelonephritis, acute hepatitis, biliary colic, choledocholithiasis, acute cholecystitis, mesenteric ischemia, intra-abdominal infection, muscle strain or sprain, zoster, pneumonia, etc. Ordered IV, labs, pain medications, CT abdomen/pelvis. Studies pending at shift change - refer to Dr. Shankar's note for the disposition. Last Recorded V/S: Last Vital Signs Temp 36.6 C 03/18/20 09:15 Pulse 70 03/18/20 09:15 Resp 16 03/18/20 09:15 BP 122/75 03/18/20 09:15 Pulse Ox 99 03/18/20 09:15 - Orders/Labs/Meds Orders: Active Orders 24 hr Category Date Time Status Saline Lock Insert [OM.PC] Stat Oth 03/18/20 06:04 Ordered Labs: Laboratory Tests 03/18/20 03/18/20 03/18/20 Range/Units 05:55 05:55 05:55 WBC 10.34 (4.0-11.0) K/uL RBC 4.73 (4.30-5.90) M/uL Hgb 13.9 (12.0-16.0) g/dL Hct 38.8 (36.0-46.0) % MCV 82.0 (80.0-98.0) fL MCH 29.4 (27.0-32.0) pg MCHC 35.8 (31.0-37.0) g/dL RDW Std Deviation 37.4 (28.0-62.0) fl RDW Coeff of Mariam 13 (11.0-15.0) % Plt Count 296 (150-400) K/uL MPV 10.20 (7.40-12.00) fL Neut % (Auto) 37.1 L (48.0-80.0) % Lymph % (Auto) 53.1 H (16.0-40.0) % [place] % (Auto) 7.3 (0.0-15.0) % Eos % (Auto) 2.3 (0.0-7.0) % Baso % (Auto) 0.2 (0.0-1.5) % Neut # (Auto) 3.8 (1.4-5.7) K/uL Lymph # (Auto) 5.5 H (0.6-2.4) K/uL [place] # (Auto) 0.8 (0.0-0.8) K/uL Eos # (Auto) 0.2 (0.0-0.7) K/uL Baso # (Auto) 0.0 (0.0-0.1) K/uL Nucleated RBC % 0.0 /100WBC Nucleated RBCs # 0 K/uL Lactate 2.0 (0.20-2.00) mmol/L Sodium 142 (136-145) mmol/L Potassium 2.9 L (3.5-5.1) mmol/L Chloride 106 (98-107) mmol/L Carbon Dioxide 24.0 (21.0-32.0) mmol/L BUN 9 (7.0-18.0) mg/dL Creatinine 0.9 (0.6-1.0) mg/dL Est Cr Clr Drug Dosing TNP Estimated GFR (MDRD) > 60.0 ml/min Glucose 131 H (74-106) mg/dL Calcium 8.8 (8.5-10.1) mg/dL Total Bilirubin 1.8 H (0.2-1.0) mg/dL AST 16 (15-37) IU/L ALT 16 (14-63) IU/L Alkaline Phosphatase 49 (46-116) U/L Total Protein 5.9 L (6.4-8.2) g/dL Albumin 4.1 (3.4-5.0) g/dL Globulin 1.8 L (2.6-4.0) g/dL Albumin/Globulin Ratio 2.3 H (0.9-1.6) Lipase 72 L (73-393) U/L HCG, Qual (NEG) Urine Color Urine Appearance Urine pH (5.0-8.0) Ur Specific [place] (1.001-1.035) Urine Protein (NEGATIVE) mg/dL Urine Glucose (UA) (NEGATIVE) mg/dL Urine Ketones (NEGATIVE) mg/dL Urine Occult Blood (NEGATIVE) Urine Nitrite (NEGATIVE) Urine Bilirubin (NEGATIVE) Urine Urobilinogen (<2.0) EU/dL Ur Leukocyte Esterase (NEGATIVE) Urine RBC (0-2/HPF) Urine WBC (0-5/HPF) Ur Epithelial Cells (NONE-FEW) Amorphous Sediment (NEGATIVE) Urine Bacteria (NEGATIVE) 03/18/20 03/18/20 Range/Units 05:55 08:00 WBC (4.0-11.0) K/uL RBC (4.30-5.90) M/uL Hgb (12.0-16.0) g/dL Hct (36.0-46.0) % MCV (80.0-98.0) fL MCH (27.0-32.0) pg MCHC (31.0-37.0) g/dL RDW Std Deviation (28.0-62.0) fl RDW Coeff of Mariam (11.0-15.0) % Plt Count (150-400) K/uL MPV (7.40-12.00) fL Neut % (Auto) (48.0-80.0) % Lymph % (Auto) (16.0-40.0) % [place] % (Auto) (0.0-15.0) % Eos % (Auto) (0.0-7.0) % Baso % (Auto) (0.0-1.5) % Neut # (Auto) (1.4-5.7) K/uL Lymph # (Auto) (0.6-2.4) K/uL [place] # (Auto) (0.0-0.8) K/uL Eos # (Auto) (0.0-0.7) K/uL Baso # (Auto) (0.0-0.1) K/uL Nucleated RBC % /100WBC Nucleated RBCs # K/uL Lactate (0.20-2.00) mmol/L Sodium (136-145) mmol/L Potassium (3.5-5.1) mmol/L Chloride (98-107) mmol/L Carbon Dioxide (21.0-32.0) mmol/L BUN (7.0-18.0) mg/dL Creatinine (0.6-1.0) mg/dL Est Cr Clr Drug Dosing Estimated GFR (MDRD) ml/min Glucose (74-106) mg/dL Calcium (8.5-10.1) mg/dL Total Bilirubin (0.2-1.0) mg/dL AST (15-37) IU/L ALT (14-63) IU/L Alkaline Phosphatase (46-116) U/L Total Protein (6.4-8.2) g/dL Albumin (3.4-5.0) g/dL Globulin (2.6-4.0) g/dL Albumin/Globulin Ratio (0.9-1.6) Lipase (73-393) U/L HCG, Qual NEGATIVE (NEG) Urine Color YELLOW Urine Appearance SLT CLOUDY Urine pH 5.5 (5.0-8.0) Ur Specific [place] 1.020 (1.001-1.035) Urine Protein TRACE H (NEGATIVE) mg/dL Urine Glucose (UA) NEGATIVE (NEGATIVE) mg/dL Urine Ketones TRACE H (NEGATIVE) mg/dL Urine Occult Blood LARGE H (NEGATIVE) Urine Nitrite NEGATIVE (NEGATIVE) Urine Bilirubin NEGATIVE (NEGATIVE) Urine Urobilinogen 0.2 (<2.0) EU/dL Ur Leukocyte Esterase NEGATIVE (NEGATIVE) Urine RBC 5-7 (0-2/HPF) Urine WBC 0-3 (0-5/HPF) Ur Epithelial Cells FEW (NONE-FEW) Amorphous Sediment MODERATE (NEGATIVE) Urine Bacteria FEW (NEGATIVE) Meds: Medications Discontinued Medications Generic Name Dose Route Start Last Admin Trade Name Freq PRN Reason Stop Dose Admin Acetaminophen 1,000 mg 03/18/20 06:21 03/18/20 06:30 Tylenol Extra Strength PO 03/18/20 06:22 1,000 mg ONETIME ONE Administration Fentanyl 100 mcg 03/18/20 06:04 03/18/20 06:09 Fentanyl IVPUSH 03/18/20 06:05 100 mcg ONETIME ONE Administration Fentanyl Confirm 03/18/20 06:04 03/18/20 06:09 Sublimaze Administered 03/18/20 06:05 Not Given Dose 100 mcg .ROUTE .STK-MED ONE Hydromorphone HCl 1 mg 03/18/20 06:36 03/18/20 06:45 Dilaudid IVPUSH 03/18/20 06:37 1 mg ONETIME ONE Administration Magnesium Sulfate 2 gm/ Premix 50 mls @ 50 mls/hr 03/18/20 06:35 03/18/20 06:44 IV 03/18/20 07:34 50 mls/hr ONETIME ONE Administration Iopamidol 100 ml 03/18/20 06:52 03/18/20 06:52 Isovue-370 (76%) IVPUSH 03/18/20 06:53 100 ml ONETIME ONE Administration Ketorolac Tromethamine 15 mg 03/18/20 06:21 03/18/20 06:29 Toradol IVPUSH 03/18/20 06:22 15 mg ONETIME ONE Administration Ondansetron HCl 4 mg 03/18/20 06:22 03/18/20 06:30 Zofran IVPUSH 03/18/20 06:23 4 mg ONETIME ONE Administration Potassium Chloride 60 meq 03/18/20 06:35 03/18/20 06:45 Potassium Chloride PO 03/18/20 06:36 60 meq ONETIME ONE Administration Sodium Chloride 10 ml 03/18/20 06:04 Saline Flush FLUSH ASDIRECTED PRN Keep Vein Open Sodium Chloride 2.5 ml 03/18/20 06:04 Saline Flush FLUSH ASDIRECTED PRN Keep Vein Open Sepsis Event Note (ED) - Evaluation Sepsis Screening Result: No Definite Risk - Focused Exam Vital Signs: Vital Signs Temp Pulse Resp BP Pulse Ox 03/18/20 09:15 36.6 C 70 16 122/75 99 - My Orders Last 24 Hours: My Active Orders 03/18/20 06:04 Saline Lock Insert [OM.PC] Stat - Assessment/Plan Last 24 Hours: My Active Orders 03/18/20 06:04 Saline Lock Insert [OM.PC] Stat
[2020-03-18] MEDS ORDERED: Potassium Chloride 10% 20 MEQ/15 ML Soln 30 ML UD Cup PO ONE (06:35)
[2020-03-18] MEDS ORDERED: Magnesium Sulfate/Water 2 GM in Premix Bag 1 BAG IV ONE (06:35)
[2020-03-18] MEDS ORDERED: HYDROmorphone 1 MG/ML Syringe IVPUSH ONE (06:36)
[2020-03-18] MEDS ORDERED: Iopamidol 755 Mg/ML 100 ML Bottle IVPUSH ONE (06:52)
--- NOTE | 2020-03-18 07:29 | CT ---
Indication: Right flank pain Technique: A CT volumetric acquisition was performed of the abdomen and pelvis during intravenous infusion 100 cc of Isovue 370 nonionic intravenous contrast. Comparison: None available Findings: The lung bases are clear. The patient`s liver and spleen demonstrate normal size in uniform enhancement. There is no evidence of inflammation within the pancreas. The gallbladder and bile ducts are normal in size. The adrenal glands have normal morphology. The abdominal aorta appears normal and there is no evidence retroperitoneal lymphadenopathy. Small cortical cysts are noted within both kidneys and there is a 3 mm calculus within the lower pole right kidney. There is slight delay in contrast enhancement of the right kidney and there is mild hydronephrosis. The dilated right ureter can be followed distally into the pelvis where there is an obstructing 3 mm stone at the right ureterovesical juncture on image 121. Small intestine and colon appear normal. There is proper positioning of an IUD within a retroverted uterus. The ovaries appear normal. Impression: Nephrolithiasis and evidence of an obstructing 3 mm calculus at the right ureterovesical juncture. Please note that all CT scans at this facility use dose modulation, iterative reconstruction, and/or weight-based dosing when appropriate to reduce radiation dose to as low as reasonably achievable. Dictated by Yamil Giang MD @ Mar 18 2020 7:22AM Signed by Dr. Yamil Giang @ Mar 18 2020 7:28AM
== END 2020-03-18 09:20 | disposition home or self-care (01) ==
LOC: MW.ED 05:49
DX: N13.2 Hydronephrosis with renal and ureteral calculous obstruction (principal); E87.6 Hypokalemia
CPT/HCPCS: 36415; 74177; 80053; 81001; 83605; 83690; 84703; 85025; 96365; 96375; 99284; A9270; J1170; J1885; J2405; J3010; J3475; Q9967; 99283